=== PATIENT | male | born 1965 | race Caucasian/White ===

== ENCOUNTER → 2024-06-14 11:45 | Observation (INO) ==
[2024-06-12 18:38] LABS: PCO2 ABG 39 mmHg (35-45); pH ABG 7.46 (7.35-7.45)
[2024-06-12 18:39] LABS: Base Excess ABG 3.7 mmo1/L (-2-2); Oxygen Saturation ABG 71 % (92-100); PO2 ABG 35 mmHg (60-100)
[2024-06-12 19:00] LABS: Basophils #(Absolute) Auto 0.1 (0.0-0.1); Basophils%(Percent) Auto 0.7 (0.0-1.3); Eosinophils#(Absolute)Auto 0.1 (0.0-0.3); Eosinophils%(Percent) Auto 1.3 % (0.0-4.0); Granulocytes % - Auto 61.4 % (49.1-73.1); Granulocytes#(Absolute)- Auto 6.5 (2.0-6.2); Hematocrit 38.9 % (41.3-50.1); Mean Corpuscular Volume 95.2 fl (81.9-96.5); Monocytes #(Absolute)- Auto 0.6 (0.2-0.8); Monocytes %(Percent)- Auto 5.4 % (4.5-10.7); Platelet Count 377 K/uL (142-355); White Blood Count 10.7 K/uL (3.7-9.6)
[2024-06-12] MEDS: IPRATROPIUM/ALBUTEROL SULFATE 3 ML AMPUL.NEB INH SCH (19:36)
[2024-06-12 19:41] LABS: Potassium 3.3 mmol/L (3.6-5.2)
[2024-06-12] MEDS: LEVOFLOXACIN/D5W 500 MG/100 ML 500 MG/100 ML PIGGYBACK IV SCH (19:47)
[2024-06-12 22:40] LABS: Urine Appearance CLEAR (CLEAR); Urine Blood NEGATIVE (NEG - TRACE); Urine Color YELLOW (STRAW/YELL.); Urine Urobilinogen Normal (NORMAL)
[2024-06-13 06:06] LABS: Eosinophils#(Absolute)Auto 0.1 (0.0-0.3); Eosinophils%(Percent) Auto 1.9 % (0.0-4.0); Granulocytes#(Absolute)- Auto 3.1 (2.0-6.2); Monocytes #(Absolute)- Auto 0.6 (0.2-0.8); White Blood Count 7.6 K/uL (3.7-9.6)
[2024-06-13 06:09] LABS: Basophils%(Percent) Auto 0.4 (0.0-1.3); Granulocytes % - Auto 41.6 % (49.1-73.1); Hematocrit 34.9 % (41.3-50.1); Mean Corpuscular Volume 95.2 fl (81.9-96.5); Monocytes %(Percent)- Auto 7.8 % (4.5-10.7); Platelet Count 310 K/uL (142-355)
[2024-06-13 06:31] LABS: Potassium 3.5 mmol/L (3.6-5.2)
[2024-06-13] MEDS: METHYLPREDNISOLONE SOD SUCC/PF 40 MG/ML VIAL INJ SCH (12:00)
[2024-06-13] MEDS: ATORVASTATIN CALCIUM 40 MG TABLET PO SCH (17:12)
[2024-06-13] MEDS: CLOPIDOGREL BISULFATE 75 MG TABLET PO SCH (17:12)
[2024-06-13] MEDS: ASPIRIN 81 MG TABLET.DR PO SCH (17:12)
[2024-06-13] MEDS: BUDESONIDE 0.5 MG/2 ML AMPUL.NEB INH SCH (20:29)
[2024-06-13] MEDS: RANOLAZINE 500 MG TAB.ER.12H PO SCH (20:33)
[2024-06-13] MEDS: METOPROLOL TARTRATE 25 MG TABLET PO SCH (20:33)
[2024-06-13] MEDS: NICOTINE 21 MG/HR .TD24 TD SCH (22:36)
[2024-06-14 05:42] LABS: Basophils%(Percent) Auto 0.2 (0.0-1.3); Granulocytes % - Auto 83.5 % (49.1-73.1); Granulocytes#(Absolute)- Auto 6.7 (2.0-6.2); Hematocrit 36.9 % (41.3-50.1); Mean Corpuscular Volume 95.6 fl (81.9-96.5); Monocytes #(Absolute)- Auto 0.1 (0.2-0.8); Monocytes %(Percent)- Auto 1.3 % (4.5-10.7); Platelet Count 359 K/uL (142-355)
[2024-06-14 05:54] LABS: Potassium 4.2 mmol/L (3.6-5.2)
[2024-06-14 08:25] VITALS: BP 106/65; PULSE 87; RESP 17; TEMP 97.7
[2024-06-14] MEDS: POTASSIUM PHOSPHATE 500 MG TABLET.SOL PO ONE (11:43)
[~2024-06-14 11:45] MED LIST: ACETAMINOPHEN 650 MG SUPP.RECT PR PRN; NITROGLYCERIN 0.4 MG TAB.SUBL SL PRN
--- NOTE | 2024-06-15 10:15 | History & Physical Report ---
H&P: HPI History of Present Illness Chief complaint: COPD and failed outpatient treatment Narrative: Patient is 58 year old male direct admitted by ARSALAN Ferguson for COPD Exacerbation, Failed Outpatient Treatment, and RSV. Chief complaint of sore abdominal muscles secondary to coughing and shortness of breath. Admitted for observation and treatment. Review of Systems Status of ROS 10 or more systems reviewed and unremark able except as noted in history and below Constitutional Denies: fever, chills or change in weight Eyes Denies: change in vision, blurry vision or blind spots Ears, nose, mouth, and throat Denies: throat pain, neck pain, throat swelling, difficulty swallowing or hoarseness Cardiovascular Denies: chest pain, palpitations, edema or shortness of breath with exertion Respiratory Reports: shortness of breath, cough, wheezing and chest congestion Gastrointestinal Reports: abdominal pain; Denies: nausea, vomiting or coffee grounds in vomit Genitourinary Denies: painful urination, urinary frequency or urinary urgency Musculoskeletal Denies: back pain, neck pain or extremity pain Integumentary/Breast Denies: rash, itching, redness or skin pain Neurological Denies: headache, numbness in extremities, weakness in extremities or lack of coordination Psychiatric Denies: anxiety, mood swings, panic attacks or change in sleep pattern Endocrine Denies: excessive urination, excessive thirst or fatigue Hematologic/Lymphatic Denies: easy bruising, easy bleeding or enlarged lymph nodes Allergic/Immunologic Denies: hives, throat swelling or tongue swelling [facility] Medical History (Updated 06/15/24 @ 10:10 by WALI Hu) Adult failure to thrive syndrome Anemia HTN (hypertension) Hyperlipidemia CAD (coronary artery disease) COPD exacerbation Social History Problems where you live: no known problems Highest level of school completed/degree received: high school Meds Home Medications and Allergies Home Medications Medication Instructions Recorded Confirmed Type aspirin 81 mg tablet,delayed 81 mg PO DAILY 06/13/24 06/13/24 History release atorvastatin 40 mg tablet 40 mg PO DAILY 06/13/24 06/13/24 History clopidogrel 75 mg tablet 75 mg PO DAILY 06/13/24 06/13/24 History metoprolol tartrate 25 mg tablet 25 mg PO BID 06/13/24 06/13/24 History nitroglycerin 0.4 mg sublingual 0.4 mg sublingual Q5M PRN chest 06/13/24 06/13/24 History tablet pain ranolazine 1,000 mg 1,000 mg PO BID 06/13/24 06/13/24 History tablet,extended release,12 hr azithromycin 250 mg tablet See Rx Instructions PO .COMPLEX 06/14/24 Rx (Zithromax Z-Daryl) copd #6 tabs budesonide-formoterol HFA 160 1 puff inhalation BID copd #10.2 06/14/24 Rx mcg-4.5 mcg/actuation aerosol grams inhaler (Symbicort) methylprednisolone 4 mg tablets in See Rx Instructions PO .COMPLEX 06/14/24 Rx a dose pack (Medrol (Daryl)) copd #21 ea Allergies Allergy/AdvReac Type Severity Reaction Status Date / Time No Known Drug Allergies Allergy Verified 06/12/24 18:08 Exam Exam: Patient in olivares's position upon entering room for exam. Constitutional: abnormal general appearance (disheveled), (chronically ill) and (appears older than stated age), no apparent distress, abnormal body habitus (thin), no limitations and alert Vital Signs - 24 hr 06/12/24 19:36 06/12/24 19:53 06/12/24 23:26 Temperature 98.3 F 98.1 F Pulse Rate Pulse Rate [Left R adial] 73 75 Respiratory Rate 19 20 Blood Pressure [Le ft Radial Artery] 119/69 120/66 Pulse Oximetry 95 97 98 Oxygen Delivery Me thod Room Air Room Air Fraction of Inspir ed Oxygen 06/12/24 23:42 06/13/24 03:36 06/13/24 08:00 Temperature 98.5 F 97.6 F Pulse Rate Pulse Rate [Left R adial] 72 67 Respiratory Rate 18 19 Blood Pressure [Le ft Radial Artery] 113/69 107/63 Pulse Oximetry 97 95 97 Oxygen Delivery Me thod Room Air Room Air Fraction of Inspir ed Oxygen 06/13/24 08:33 06/13/24 11:38 06/13/24 12:00 Temperature 98.3 F Pulse Rate Pulse Rate [Left R adial] 81 Respiratory Rate 20 Blood Pressure [Le ft Radial Artery] 99/57 Pulse Oximetry 97 97 95 Oxygen Delivery Me thod Room Air Fraction of Inspir ed Oxygen 06/13/24 15:30 06/13/24 15:30 06/13/24 16:00 Temperature 98.1 F Pulse Rate 81 Pulse Rate [Left R adial] 75 Respiratory Rate 20 Blood Pressure [Le ft Radial Artery] 102/62 Pulse Oximetry 96 96 Oxygen Delivery Me thod Room Air Room Air Fraction of Inspir ed Oxygen 21 HENMT: normocephalic, head/scalp atraumatic, hearing grossly normal bilaterally, external ears normal and external nose normal Eyes: PERRL, conjunctivae normal, alignment normal, periorbital findings normal and visual acuity normal Neck/C-Spine: visual inspection normal and trachea midline Lymph: no lymphadenopathy noted and no lymphedema noted Chest: inspection of chest normal and palpation of chest normal Respiratory: breath sounds equal bilaterally, normal respiratory effort and auscultation abnormal (diminished breath sound) Cardiovascular: normal heart rate noted, regular rhythm noted and no murmur Gastrointestinal: abdomen normal to inspection, abdomen soft to palpation, nondistended and normoactive bowel sounds Genitourinary: bladder normal to palpation Back/Pelvis: spine normal to inspection Extremities: normal to inspection, normal to palpation and no deformity Neurology: chemical laboratory chief II-XII intact, no movement abnormality noted, no focal motor deficit noted, no sensory deficits noted, deep tendon reflexes 2+ bilaterally, gait abnormality noted (unable to access) and speech normal Psychiatry: Mental Status Exam documented within this Exam's Psych section mental status grossly normal, oriented x3, thought process normal, cooperative, affect normal, psychomotor activity normal and memory normal Skin: skin color normal, no rash, no lesions and skin turgor normal Assessment and Plan Assessment and Plan (1) COPD exacerbation: Code(s): J44.1 - Chronic obstructive pulmonary disease with (acute) exacerbation (2) Respiratory distress, acute: Code(s): R06.03 - Acute respiratory distress (3) Sinus tachycardia: Code(s): R00.0 - Tachycardia, unspecified (4) HTN (hypertension): Qualifiers: Hypertension type: primary hypertension Qualified Code(s): I10 - Essential (primary) hypertension Code(s): I10 - Essential (primary) hypertension (5) Hypophosphatemia: Code(s): E83.39 - Other disorders of phosphorus metabolism (6) Hypokalemia: Code(s): E87.6 - Hypokalemia (7) Adult failure to thrive syndrome: Code(s): R62.7 - Adult failure to thrive (8) Anemia: Qualifiers: Anemia type: unspecified type Qualified Code(s): D64.9 - Anemia, unspecified Code(s): D64.9 - Anemia, unspecified Plan Albuterol Sulfate 3 ml INH RQ4 Levofloxacin/Dextrose 500 mg in 100 mls @ 50 mls/hr IV Q24H Acetaminophen 650 mg UT Q4H PRN Ondansetron Hcl 4 mg PO Q6H PRN Budesonide 0.5 mg INH RBID Methylprednisolone Sodium Succinate 40 mg INJ Q8H Aspirin 81 mg PO Daily Atorvastatin Calcium 40 mg PO Daily Clopidogrel Bisulfate 75 mg PO Daily Metoprolol Tartrate 25 mg PO BID Nitroglycerin 0.4 mg SL Q5M PRN Ranolazine 1,000 mg PO BID Nicotine 21 mg/hr Patch (1) each TD Daily Potassium Phosphate 500 mg PO ONCE Continue to monitor labs and symptoms at this time. Results Labs Labs: CBC WBC 7.6 K/uL (3.7-9.6) 06/13/24 05:30 RBC 3.7 M/uL (4.40-5.80) L 06/13/24 05:30 Hgb 12.2 gm/dL (14.0-17.4) L 06/13/24 05:30 Hct 34.9 % (41.3-50.1) L 06/13/24 05:30 MCV 95.2 fl (81.9-96.5) 06/13/24 05:30 MCH 33.4 pg (27.6-33.7) 06/13/24 05:30 MCHC 35.0 g/dl (33.0-35.7) 06/13/24 05:30 RDW 14.5 % (11.0-14.8) 06/13/24 05:30 Plt Count 310 K/uL (142-355) 06/13/24 05:30 MPV 7.5 fl (6.0-10.4) 06/13/24 05:30 Gran % 41.6 % (49.1-73.1) L 06/13/24 05:30 Lymph % (Auto) 48.3 % (17.6-39.05) H 06/13/24 05:30 [place] % (Auto) 7.8 % (4.5-10.7) 06/13/24 05:30 Eos % (Auto) 1.9 % (0.0-4.0) 06/13/24 05:30 Baso % (Auto) 0.4 (0.0-1.3) 06/13/24 05:30 Lymph # (Auto) 3.6 (0.8-2.9) H 06/13/24 05:30 [place] # (Auto) 0.6 (0.2-0.8) 06/13/24 05:30 Eos # (Auto) 0.1 (0.0-0.3) 06/13/24 05:30 Baso # (Auto) 0.0 (0.0-0.1) 06/13/24 05:30 Absolute Gran (auto) 3.1 (2.0-6.2) 06/13/24 05:30 BMP Sodium 140 mmol/L (136-145) 06/13/24 05:30 Potassium 3.5 mmol/L (3.6-5.2) L 06/13/24 05:30 Chloride 104.0 mmol/L (98-107) 06/13/24 05:30 Carbon Dioxide 29 mmol/L (21-32) 06/13/24 05:30 Anion Gap 7.0 mEq/L (4-14) 06/13/24 05:30 BUN 13 mg/dL (7-18) 06/13/24 05:30 Creatinine 1.0 mg/dL (0.6-1.3) 06/13/24 05:30 Estimated GFR 86.7 (>59.9) 06/13/24 05:30 Glucose 105 mg/dL (70-110) 06/13/24 05:30 Calcium 8.8 mg/dL (8.5-10.1) 06/13/24 05:30 Phosphorus 3.8 mg/dL (2.5-4.9) 06/13/24 05:30 Magnesium 1.9 mg/dL (1.8-2.4) 06/13/24 05:30 Total Bilirubin 0.37 mg/dL (0.0-1.0) 06/13/24 05:30 AST 15 U/L (15-37) 06/13/24 05:30 ALT 43 U/L (30-65) 06/13/24 05:30 Alkaline Phosphatase 46 U/L (50-136) L 06/13/24 05:30 Total Protein 6.0 g/dL (6.4-8.2) L 06/13/24 05:30 Albumin 3.1 g/dL (3.4-5.0) L 06/13/24 05:30 Liver Function Total Bilirubin 0.37 mg/dL (0.0-1.0) 06/13/24 05:30 AST 15 U/L (15-37) 06/13/24 05:30 ALT 43 U/L (30-65) 06/13/24 05:30 Alkaline Phosphatase 46 U/L (50-136) L 06/13/24 05:30 Total Protein 6.0 g/dL (6.4-8.2) L 06/13/24 05:30 Albumin 3.1 g/dL (3.4-5.0) L 06/13/24 05:30 Urine Urine Color Yellow (STRAW/YELL.) 06/12/24 18:26 Urine Appearance Clear (CLEAR) 06/12/24 18:26 Ur Specific [place] 1.010 (1.001-1.035) 06/12/24 18:26 Urine Protein Negative (NEGATIVE) 06/12/24 18:26 Urine Glucose (UA) Normal (NORMAL) 06/12/24 18:26 Urine Ketones Negative (NEGATIVE) 06/12/24 18:26 Urine Occult Blood Negative (NEG - TRACE) 06/12/24 18:26 Urine Nitrite Negative (NEGATIVE) 06/12/24 18:26 Urine Bilirubin Negative (NEGATIVE) 06/12/24 18:26 Urine Urobilinogen Normal (NORMAL) 06/12/24 18:26 Ur Leukocyte Esterase Negative (NEGATIVE) 06/12/24 18:26 ABG ABG results: 06/12/24 18:08 ABG pH 7.46 H ABG pCO2 39 ABG HCO3 27.7 H ABG Total CO2 28.9 ABG O2 Saturation 71 L* ABG Base Excess 3.7 H Imaging Imaging ordered: Chest x-ray Radiologist's impression: Two-view chest Date of Service: 06/12/24 HISTORY: COPD exacerbation COMPARISON: FINDINGS: Heart size is normal. Noemi are normal. Lungs are markedly hyperinflated consistent with COPD. No acute alveolar infiltrates or pleural effusions are identified. Bony thorax is unremarkable. IMPRESSION: Lungs hyperinflated but free of acute infiltrates, consistent with the patient's diagnosis of COPD
== END | disposition home or self-care (01) ==
LOC: MS
PROVIDERS: ADMIT Family Medicine; ATTEND Family Medicine
DX: D64.89 Other specified anemias; R62.7 Adult failure to thrive; R00.0 Tachycardia, unspecified; I10 Essential (primary) hypertension; J44.1 Chronic obstructive pulmonary disease with (acute) exacerbation; E83.39 Other disorders of phosphorus metabolism; R06.03 Acute respiratory distress; E87.6 Hypokalemia